=== PATIENT | male | born 1945 | race Caucasian/White ===

== ENCOUNTER → 2016-12-01 | Outpatient (CLI) | payer MEDICARE ==
[~2016-12-01] MED LIST: CALCIUM600 MG PO; CELEBREX 200MG200 MG PO; FISH OIL 1,2001 EACH PO; IMDUR ER TAB 3030 MG PO; LASIX 40 MG TAB40 MG PO; LEVAQUIN500 MG PO; LEVOTHYROXINE125 MCG PO; MONTELUKAST SOD10 MG PO; MULTIVITAMINS1 EAC1 PO; NASACORT16.9 ML; PLAVIX 75 MG TA75 MG PO; PROTONIX 40 MG40 M1 PO; PROVENTIL HFA 61 INH INH; QUINAPRIL HCL20 MG PO; SIMVASTATIN20 MG PO; TOPROL XL 50 MG50 MG PO; TYLENOL W/CODEIN1 E1 PO; VITAMIN C 500500 MG PO; VITAMIN D33000 UNIT PO; ZOSTAVAX V19400 UNIT SQ
== END ==
LOC: HEART 5 14:44
DX: I25.10 Atherosclerotic heart disease of native coronary artery without angina pectoris (principal); I49.5 Sick sinus syndrome; I35.1 Nonrheumatic aortic (valve) insufficiency; I37.1 Nonrheumatic pulmonary valve insufficiency
CPT/HCPCS: 93306

== ENCOUNTER → 2016-12-02 | Outpatient (CLI) | payer MEDICARE ==
[2016-12-02 07:49] LABS: HEMOGLOBIN 13.8 gm/dl (14.0-17.5); RED BLOOD COUNT 4.39 M/UL (4.20-5.50); WHITE BLOOD COUNT 5.6 K/UL (4.5-11.0)
[2016-12-02 08:04] LABS: BUN/CREATININE RATIO 23 (0-10)
== END ==
LOC: LAB 06:49
PROVIDERS: Internal Medicine Cardiovascular Disease
DX: Z45.010 Encounter for checking and testing of cardiac pacemaker pulse generator [battery] (principal); I49.5 Sick sinus syndrome
CPT/HCPCS: 36415; 71020; 80048; 85025

== ENCOUNTER → 2016-12-05 | Outpatient (CLI) | payer MEDICARE ==
[~2016-12-05] VITALS: Ht 172.7 cm; Wt 90.3 kg
== END | disposition home or self-care (01) ==
LOC: CATH 08:50
DX: Z45.010 Encounter for checking and testing of cardiac pacemaker pulse generator [battery] (principal); I49.5 Sick sinus syndrome; I10 Essential (primary) hypertension; I25.10 Atherosclerotic heart disease of native coronary artery without angina pectoris; E78.5 Hyperlipidemia, unspecified; E03.9 Hypothyroidism, unspecified; Z95.1 Presence of aortocoronary bypass graft; Z98.61 Coronary angioplasty status; Z79.899 Other long term (current) drug therapy; Z95.5 Presence of coronary angioplasty implant and graft; C61 Malignant neoplasm of prostate; J30.9 Allergic rhinitis, unspecified; S32.010A Wedge compression fracture of first lumbar vertebra, initial encounter for closed fracture; K21.9 Gastro-esophageal reflux disease without esophagitis; M81.0 Age-related osteoporosis without current pathological fracture; R73.03 Prediabetes; Z86.79 Personal history of other diseases of the circulatory system; G47.33 Obstructive sleep apnea (adult) (pediatric); Z87.891 Personal history of nicotine dependence
CPT/HCPCS: C1785; J1200; J2250; J3010; J3370; J7040; J7050

== ENCOUNTER → 2017-01-12 | Outpatient (CLI) | payer MEDICARE ==
[~2017-01-12] VITALS: Ht 172.7 cm; Wt 90.7 kg
== END ==
LOC: OPSV 08:30
DX: M81.0 Age-related osteoporosis without current pathological fracture (principal)
CPT/HCPCS: 96365; J3489; J7050

== ENCOUNTER → 2020-09-21 | Outpatient (CLI) | payer MEDICARE ==
[~2020-09-21] MED LIST changes: +INVANZ 1 GM VIAL1 GM IM
== END ==
LOC: LAB 07:36
DX: M81.0 Age-related osteoporosis without current pathological fracture (principal)
CPT/HCPCS: 36415

== ENCOUNTER → 2020-11-12 | Outpatient (CLI) | payer MEDICARE ==
[~2020-11-12] VITALS: Ht 175.3 cm; Wt 83.9 kg
== END ==
LOC: OPSV 06:41
DX: M81.0 Age-related osteoporosis without current pathological fracture (principal); S32.010A Wedge compression fracture of first lumbar vertebra, initial encounter for closed fracture; X58.XXXA Exposure to other specified factors, initial encounter
CPT/HCPCS: 96372

== ENCOUNTER → 2021-09-27 | Outpatient (CLI) | payer MEDICARE | LOC: RAD 07:51 | DX: M25.511 Pain in right shoulder (principal) | CPT/HCPCS: 73030 ==

== ENCOUNTER → 2021-10-04 | Outpatient (CLI) | payer MEDICARE | LOC: KOH-I 13:48 | DX: M25.511 Pain in right shoulder (principal); M25.611 Stiffness of right shoulder, not elsewhere classified; M19.011 Primary osteoarthritis, right shoulder | CPT/HCPCS: 73200 ==